=== PATIENT | female | born 1975 | race Hispanic/Latino ===

== ENCOUNTER 2023-01-31 03:10 | Emergency (ER) | payer MEDICAID, OTHER ==
[~2023-01-31] VITALS: Ht 160 cm; Wt 71.2 kg
[2023-01-31] MEDS ORDERED: KETOROLAC 30MG VIAL (30MG/ML) IVP ONE (04:00)
[2023-01-31] MEDS ORDERED: DiphenhydrAMINE HCL 50 MG/ML VIAL IV ONE (04:00)
[2023-01-31] MEDS ORDERED: METOCLOPRAMIDE 10 MG/2 ML VIAL IVP ONE (04:00)
[2023-01-31] MEDS ORDERED: ONDA-104 PO (06:17)
[2023-01-31] MEDS ORDERED: IBUP-1493 PO (06:17)
[2023-01-31 07:09] VITALS: BP 110/60
== END 2023-01-31 07:10 | disposition home or self-care (01) ==
LOC: EDH 03:10
DX: G43.909 Migraine, unspecified, not intractable, without status migrainosus (principal)
CPT/HCPCS: 99285; 96374; 70450; 96375; 84703; 36415; J1200; J1885; J2765